=== PATIENT | male | born 1980 | race Caucasian/White ===

== ENCOUNTER 2018-12-23 06:08 | Emergency (ER) | payer OTHER ==
[~2018-12-23] VITALS: Ht 180.3 cm; Wt 65.8 kg
[2018-12-23 06:40] LABS: ABSOLUTE BASOPHILS 0.1 thou/uL (0.0-0.2); ABSOLUTE EOSINOPHILS 0.2 thou/uL (0.0-0.7); ABSOLUTE LYMPHOCYTES 1.9 thou/uL (0.8-5.3); ABSOLUTE NEUTROPHILS 14.8 thou/uL (1.6-8.1); BASOPHILS 0.5 %; EOSINOPHILS 0.9 %; HEMATOCRIT 41.7 % (42.0-52.0); HEMOGLOBIN 13.9 gm/dL (14.0-18.0); LYMPHOCYTES 10.1 %; MCH 28.1 pg (26.0-34.0); MCHC 33.3 g/dL (28.0-37.0); MCV 84.3 fL (80.0-100.0); MONOCYTES 10.6 %; MPV 7.5 fl. (7.2-11.1); NUCLEATED RBCS 0 /100WBC; PLATELET COUNT* 490 thou/uL (150-400); POLYS 77.9 %; RBC 4.95 mil/uL (4.50-6.00); RDW-CV 14.3 % (10.5-14.5)
[2018-12-23 06:42] LABS: URINE BILIRUBIN NEGATIVE (Negative); URINE BLOOD 3+ (Negative); URINE CLARITY CLEAR; URINE COLOR YELLOW; URINE GLUCOSE-RANDOM NEGATIVE (Negative); URINE KETONES NEGATIVE (Negative); URINE LEUKOCYTES-REFLEX NEGATIVE (Negative); URINE NITRITE-REFLEX NEGATIVE (Negative); URINE PROTEIN NEGATIVE (Negative); URINE SPECIFIC GRAVITY >= 1.030 (1.005-1.030); URINE UROBILINOGEN 0.2 E.U./dl (0.2-1.0)
[2018-12-23 06:51] LABS: AMP/METHAMP POSITIVE (Negative); BARBITURATES Negative (Negative); BENZODIAZEPINES POSITIVE (Negative); COCAINE Negative (Negative); METHADONE Negative (Negative); OPIATES Negative (Negative); PCP Negative (Negative); SQUAMOUS NONE SEEN /LPF (0-3); THC POSITIVE (Negative); URINE WBC-REFLEX None Seen /HPF (0-5)
[2018-12-23 06:52] LABS: BACTERIA-REFLEX None Seen /HPF (None Seen); CASTS None Seen /LPF (None Seen); CRYSTALS None Seen /LPF (None Seen); MUCUS 0-3 Light strn/LPF (None Seen)
[2018-12-23 06:59] LABS: ALBUMIN 4.1 g/dL (3.4-5.0); CALCIUM 9.5 mg/dL (8.5-10.1); CREATININE 1.2 mg/dL (0.6-1.3); TOTAL BILIRUBIN 0.2 mg/dL (<0.1-1.0)
[2018-12-23] MEDS ORDERED: ZOFRAN ODT4 MG PO (08:39)
[2018-12-23] MEDS ORDERED: ULTRAM 50MG TAB50 MG PO (08:39)
[2018-12-23] MEDS ORDERED: TORADOL 10 MG T10 MG PO (08:39)
[2018-12-23 08:56] VITALS: BP 136/84
== END 2018-12-23 08:56 | disposition home or self-care (01) ==
LOC: M.ERS 06:08
PROVIDERS: Emergency Medicine
DX: R10.11 Right upper quadrant pain (principal); F12.10 Cannabis abuse, uncomplicated; R53.1 Weakness

== ENCOUNTER 2018-12-29 12:56 | Emergency (ER) | payer OTHER ==
[~2018-12-29] VITALS: Ht 180.3 cm; Wt 68.0 kg
[~2018-12-29 12:56] MED LIST: TORADOL 10 MG T10 MG PO; ULTRAM 50MG TAB50 MG PO; ZOFRAN ODT4 MG PO
[2018-12-29] MEDS ORDERED: NORCO 5-325 TA1 EAC1 PO (14:15)
[2018-12-29] MEDS ORDERED: BACTRIM DS TAB1 EACH PO (14:15)
[2018-12-29] MEDS ORDERED: KEFLEX500 M1 PO (14:15)
[2018-12-29 14:24] VITALS: BP 147/87
== END 2018-12-29 14:25 | disposition home or self-care (01) ==
LOC: M.ERS 12:56
DX: L03.115 Cellulitis of right lower limb (principal); L02.415 Cutaneous abscess of right lower limb; F17.210 Nicotine dependence, cigarettes, uncomplicated

== ENCOUNTER 2019-06-25 03:47 | Emergency (ER) | payer OTHER ==
[~2019-06-25] VITALS: Ht 180.3 cm; Wt 69.0 kg
[~2019-06-25 03:47] MED LIST changes: +BACTRIM DS TAB1 EACH PO; +KEFLEX500 M1 PO; +NORCO 5-325 TA1 EAC1 PO
[2019-06-25] MEDS ORDERED: TYLENOL WITH CO1 TA1 PO (04:55)
[2019-06-25] MEDS ORDERED: BACTRIM DS TAB1 EACH PO (04:55)
[2019-06-25 05:14] VITALS: BP 164/102
== END 2019-06-25 05:16 | disposition home or self-care (01) ==
LOC: M.ERS 03:47
DX: L02.11 Cutaneous abscess of neck (principal)

== ENCOUNTER 2020-12-16 17:56 | Emergency (ER) | payer OTHER ==
[~2020-12-16] VITALS: Ht 180.3 cm; Wt 73.5 kg
[~2020-12-16 17:56] MED LIST changes: +TYLENOL WITH CO1 TA1 PO
[2020-12-16 18:31] VITALS: BP 159/98
== END 2020-12-16 19:09 | disposition left against medical advice (07) ==
LOC: M.ERS 17:56
DX: Z53.21 Procedure and treatment not carried out due to patient leaving prior to being seen by health care provider (principal)

== ENCOUNTER 2020-12-21 03:39 | Emergency (ER) | payer OTHER ==
[~2020-12-21] VITALS: Ht 180.3 cm; Wt 72.6 kg
[2020-12-21] MEDS ORDERED: BACTRIM DS TAB1 EAC1 PO (03:48)
[2020-12-21] MEDS ORDERED: DOXYCYCLINE 10100 MG PO (05:43)
[2020-12-21] MEDS ORDERED: HYDROCODON-ACE1 EAC8 PO (05:43)
[2020-12-21] MEDS ORDERED: FLAGYL500 M1 PO (05:43)
[2020-12-21 05:51] VITALS: BP 164/94
== END 2020-12-21 05:52 | disposition home or self-care (01) ==
LOC: M.ERS 03:39
DX: S62.92XB Unspecified fracture of left hand, initial encounter for open fracture (principal); Z88.2 Allergy status to sulfonamides; W54.0XXA Bitten by dog, initial encounter; Y93.89 Activity, other specified; Y92.89 Other specified places as the place of occurrence of the external cause; Y99.8 Other external cause status

== ENCOUNTER 2021-03-11 15:42 | Emergency (ER) | payer OTHER ==
[~2021-03-11] VITALS: Ht 180.3 cm; Wt 72.6 kg
[~2021-03-11 15:42] MED LIST changes: +BACTRIM DS TAB1 EAC1 PO; +DOXYCYCLINE 10100 MG PO; +FLAGYL500 M1 PO; +HYDROCODON-ACE1 EAC8 PO
[2021-03-11 17:29] VITALS: BP 128/88
== END 2021-03-11 17:30 | disposition home or self-care (01) ==
LOC: M.ERS 15:42
DX: S62.325A Displaced fracture of shaft of fourth metacarpal bone, left hand, initial encounter for closed fracture (principal); M25.521 Pain in right elbow; Z86.14 Personal history of Methicillin resistant Staphylococcus aureus infection; X58.XXXA Exposure to other specified factors, initial encounter; Y93.89 Activity, other specified; Y92.89 Other specified places as the place of occurrence of the external cause; Y99.8 Other external cause status

== ENCOUNTER 2021-03-13 19:56 | Emergency (ER) | payer OTHER ==
[~2021-03-13] VITALS: Ht 154.9 cm; Wt 73.5 kg
[2021-03-13] MEDS ORDERED: DOXYCYCLINE 10100 MG PO (21:02)
[2021-03-13] MEDS ORDERED: IBUPROFEN 800800 MG PO (21:02)
[2021-03-13 21:24] VITALS: BP 118/70
== END 2021-03-13 21:20 ==
LOC: M.ERS 19:56
DX: L02.31 Cutaneous abscess of buttock (principal)